=== PATIENT | male | born 1995 | race Caucasian/White ===

== ENCOUNTER 2017-08-05 14:13 | Emergency (ER) | payer BC, OTHER ==
--- NOTE | ~2017-08-05 | ER ---
PATIENT'S NAME: TOM ABBASI [facility] AGE: 21 Y [address] ROOM: [place] [address] LOCATION: [facility] ADMIT DATE: 08/05/2017 ER/Outpatient Report DISCHARGE DATE: 08/05/2017 FAMILY PHYSICIAN: Adarsh Andres MD ATTENDING PHYSICIAN: Lindsay Mckee Time of Arrival: 1413 hours. Time of Evaluation: 1425 hours. CHIEF COMPLAINT: Left wrist pain. HISTORY OF PRESENT ILLNESS: This is a 21-year-old male, who presents to the ER with a left wrist pain that has been going on since last night. The patient knows of no injury to the wrist. He states that he has not had pain like this before, and he has pain with range of motion of his left wrist, and states that he has tingling into his fingers. 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 He states he does carry a lot of things with his left arm, but he is right handed. He denies any fever or chills. No other problems at this time. ALLERGIES: NEURONTIN. MEDICATIONS: Please see medication list in nurse's notes. PAST MEDICAL HISTORY: 1. Trigeminal neuralgia. 2. Asthma. PAST SURGICAL HISTORY: Ankle. SOCIAL HISTORY: He does smoke on vape pen. He drinks alcohol frequently. REVIEW OF SYSTEMS: GENERAL: Denies any change in weight or fatigue. MUSCULOSKELETAL: He is complaining of left wrist pain. HEME: No easy bruising or bleeding. SKIN: No lesions or rashes. PHYSICAL EXAMINATION: PATIENT'S NAME: TOM ABBASI [facility] AGE: 21 Y [address] ROOM: [place] [address] LOCATION: [facility] ADMIT DATE: 08/05/2017 ER/Outpatient Report DISCHARGE DATE: 08/05/2017 FAMILY PHYSICIAN: Adarsh Andres MD ATTENDING PHYSICIAN: Lnidsay Mckee VITAL SIGNS: Height 6 feet 1 inch stated, weight 85.8 kg taken, blood pressure is 133/64, pulse 79, respirations 16, temperature 98.7 degrees with the temporal scanner, saturations 96% on room air. [place] Coma Score is 15. GENERAL: Alert, calm, well-developed 21-year-old, in no acute distress. EXTREMITIES: No clubbing or cyanosis. He does have decreased range of motion of his left wrist secondary to pain. He has pain in volar side of his left wrist. He has a positive Tinel sign. He has good radial pulse, good sensation to all his fingers, good capillary refill. He maybe has a slight increase in swelling compared to his right. He has full range of motion in all other limbs. NEUROLOGIC: Cranial nerves 2 through 12 grossly intact. Gait is steady without assistance. LABORATORY DATA AND X-RAYS: Labs, none were done. X-rays of the left wrist show no fracture. IMPRESSION: Left wrist pain. ASSESSMENT AND PLAN: We will place the patient in a Velcro wrist splint. He needs ice and elevate the wrist. He may take Tylenol or ibuprofen as needed for pain control, and I would like him to follow up with his primary care physician or orthopedic of choice for followup care in the next 2 to 3 days. The patient understands and agrees with care. RICKY MORENO PA-C FOR MD [facility] RIVERO/zuly /[id number] d: 08/05/17 2309 t: 08/07/17 1501, OUTPATIENT REPORT
== END 2017-08-05 15:17 | disposition disaster alternative care site (69) ==
LOC: GMED 14:13
PROC: 2W3DX1Z Immobilization of Left Lower Arm using Splint (ICD-10-PCS; principal; 2017-08-05)
DX: M25.532 Pain in left wrist (principal); J45.909 Unspecified asthma, uncomplicated; G50.0 Trigeminal neuralgia; Z88.8 Allergy status to other drugs, medicaments and biological substances; Z79.1 Long term (current) use of non-steroidal anti-inflammatories (NSAID); Z79.891 Long term (current) use of opiate analgesic; Z79.899 Other long term (current) drug therapy; Z98.890 Other specified postprocedural states